=== PATIENT | female | born 1960 | race Caucasian/White ===

== ENCOUNTER 2018-06-19 10:47 | Emergency (ER) | payer OTHER ==
[~2018-06-19 10:47] MED LIST: AZIT-18 PO; ESOM20CA31 PO; LISI-362 PO; PRED-1 PO
[2018-06-19] MEDS ORDERED: LISI20TA29 PO (10:58)
[2018-06-19] MEDS ORDERED: PANT40TA65 PO (10:58)
--- NOTE | 2018-06-19 11:00 | ER Report ---
History and Physical Time Seen By MD: 10:56 Hx. of Stated Complaint: CHEST PAIN ON LEFT SIDE SINCE 0600; STATES THAT THE LEFT SIDE OF HER NECK IS ALSO PAINFUL HPI/ROS CHIEF COMPLAINT: Chest pain HISTORY OF PRESENT ILLNESS: This is a 58-year-old female presents to the emergency department with her for chest pain. Patient states that about 6:00 this morning when she woke up she had some left-sided chest pain and as the morning progressed the pain had radiated into the left chest and into the left side of her neck. Patient took 12/23/2024 milligram aspirin. She also has some mild shortness of breath, blurred vision, nausea no vomiting. No fevers or chills. No rashes. No headaches. No other neuro deficits. Patient states that she thinks this is stress related, this is the last week of work and will be transitioning into a new job. REVIEW OF SYSTEMS: Constitutional: No fever, no chills. Eyes: As above. ENT: No sore throat. Cardiovascular: As above. Respiratory: As above. Gastrointestinal: As above. Genitourinary: No hematuria. Musculoskeletal: As above. Skin: No rashes. Neurological: No headache. Allergies: Coded Allergies: Penicillins (Verified Allergy, Intermediate, RASH, 12/07/15) Sulfa (Sulfonamide Antibiotics) (Verified Allergy, Intermediate, RASH, ) Home Meds Reported Medications Lisinopril (LISINOPRIL) 20 Mg Tablet, 20 MG PO QDAY, TAB 06/19/18 Pantoprazole Sodium (PANTOPRAZOLE SODIUM) 40 Mg Tablet.dr, 40 MG PO QDAY, TAB.SR 06/19/18 Discontinued Reported Medications Esomeprazole Magnesium (NEXIUM) 20 Mg Capsule.dr, 1 CAP PO QDAY, CAP 12/07/15 Lisinopril (LISINOPRIL) 10 Mg Tablet, 10 MG PO QDAY 12/07/15 Discontinued Scripts Prednisone 10 Mg Tab (PREDNISONE 10 MG TAB) 10 Mg Tablet, 10 MG PO QDAY Y for reduction of lung inflammation, #9 2 tabs daily for 3 days 1 tab daily for 3 days Prov:FEDERICO HERNANDEZ DO 12/07/15 Azithromycin 250 Mg Tab (AZITHROMYCIN 250 MG TAB) 250 Mg Tablet, 0 PO QDAY, #6 TAB TAKE 2 TABLETS ON DAY 1 AND 1 TABLET ON DAYS 2-5 Prov:FEDERICO HERNANDEZ DO 12/07/15 Past Medical/Surgical History The patient has a past medical and surgical history of hypertension, pneumonia, GERD, urinary tract infections, wears glasses, history of anxiety, cholecystectomy, tubal ligation. Reviewed Nurses Notes: Yes Hx Smoking: No Constitutional Vital Sign - Last 24 Hours 06/19/18 06/19/18 06/19/18 06/19/18 10:51 10:51 11:04 11:17 Temp 97.7 Pulse 65 64 Resp 17 B/P (MAP) 184/79 184/79 (114) 158/96 (116) Pulse Ox 97 O2 Delivery Room Air 06/19/18 06/19/18 06/19/18 06/19/18 11:47 12:00 12:05 12:30 Pulse 61 54 58 Resp 12 14 12 B/P (MAP) 141/89 (106) 139/81 (100) Pulse Ox 92 95 93 06/19/18 06/19/18 06/19/18 06/19/18 13:00 13:05 13:35 14:00 Pulse 64 66 64 Resp 18 17 14 B/P (MAP) 136/59 (84) 131/88 (102) Pulse Ox 93 96 94 06/19/18 14:30 Pulse 63 Resp 25 B/P (MAP) 143/79 (100) Pulse Ox 93 Physical Exam General Appearance: The patient is alert, has no immediate need for airway protection and no signs of toxicity. Eyes: Pupils equal and round no pallor or injection. EOMs intact, no nystatin. ENT, Mouth: Mucous membranes are moist. Respiratory: There are no retractions, lungs are clear to auscultation. Cardiovascular: Regular rate and rhythm, no murmurs, clicks or rubs. Gastrointestinal: Abdomen is round soft and non tender, no masses, bowel sounds normal. Neurological: Alert and oriented 4. Moving all extremities. Following all commands. No focal neuro deficits. Skin: Warm and dry, no rashes. Musculoskeletal: Neck is supple non tender. Extremities are nontender, nonswollen and have full range of motion. DIFFERENTIAL DIAGNOSIS: After history and physical exam differential diagnosis was considered for chest pain including but not limited to myocardial ischemia, pericarditis pulmonary embolus, chest wall pain, arthritis, Pleural inflammation and pulmonary infectious causes. Medical Decision Making Data Points Result Diagram: 7/31/18 1111 06/19/18 1111 Laboratory Hematology Test 06/19/18 11:11 Red Blood Count 4.87 M/uL (4.17-5.56) Mean Corpuscular Volume 95.8 fL (80.0-96.0) Mean Corpuscular Hemoglobin 33.5 pg (26.0-33.0) Mean Corpuscular Hemoglobin Concent 34.9 g/dL (32.0-36.0) Red Cell Distribution Width 13.3 % (11.5-14.5) Mean Platelet Volume 7.0 fL (7.2-11.1) Neutrophils (%) (Auto) 42.9 % (39.4-72.5) Lymphocytes (%) (Auto) 47.4 % (17.6-49.6) Monocytes (%) (Auto) 7.6 % (4.1-12.4) Eosinophils (%) (Auto) 1.7 % (0.4-6.7) Basophils (%) (Auto) 0.4 % (0.3-1.4) Nucleated RBC Relative Count (auto) 0.2 /100WBC Neutrophils # (Auto) 3.1 K/uL (2.0-7.4) Lymphocytes # (Auto) 3.5 K/uL (1.3-3.6) Monocytes # (Auto) 0.6 K/uL (0.3-1.0) Eosinophils # (Auto) 0.1 K/uL (0.0-0.5) Basophils # (Auto) 0.0 K/uL (0.0-0.1) Nucleated RBC Absolute Count (auto) 0.01 K/uL D-Dimer Quantitative (PE/DVT) 0.47 ug/ml (0-0.50) Sodium Level 139 mmol/L (137-145) Potassium Level 3.9 mmol/L (3.5-5.0) Chloride Level 106 mmol/L (98-107) Carbon Dioxide Level 23 mmol/L (22-31) Blood Urea Nitrogen 9 mg/dl (7-18) Creatinine 0.90 mg/dl (0.52-1.04) Glomerular Filtration Rate Calc > 60.0 Random Glucose 94 mg/dl (75-110) Calcium Level 9.4 mg/dl (8.4-10.2) Total Bilirubin 1.1 mg/dl (0.2-1.3) Aspartate Amino Transf (AST/SGOT) 38 U/L (0-35) Alanine Aminotransferase (ALT/SGPT) 48 U/L (0-56) Alkaline Phosphatase 58 U/L (0-126) Troponin I < 0.012 ng/ml Total Protein 7.5 g/dl (6.3-8.2) Albumin 4.4 g/dl (3.5-5.0) Chemistry Test 06/19/18 11:11 White Blood Count 7.3 k/uL (4.5-11.0) Red Blood Count 4.87 M/uL (4.17-5.56) Hemoglobin 16.3 g/dL (12.0-16.0) Hematocrit 46.7 % (34.0-47.0) Mean Corpuscular Volume 95.8 fL (80.0-96.0) Mean Corpuscular Hemoglobin 33.5 pg (26.0-33.0) Mean Corpuscular Hemoglobin Concent 34.9 g/dL (32.0-36.0) Red Cell Distribution Width 13.3 % (11.5-14.5) Platelet Count 270 K/uL (150-450) Mean Platelet Volume 7.0 fL (7.2-11.1) Neutrophils (%) (Auto) 42.9 % (39.4-72.5) Lymphocytes (%) (Auto) 47.4 % (17.6-49.6) Monocytes (%) (Auto) 7.6 % (4.1-12.4) Eosinophils (%) (Auto) 1.7 % (0.4-6.7) Basophils (%) (Auto) 0.4 % (0.3-1.4) Nucleated RBC Relative Count (auto) 0.2 /100WBC Neutrophils # (Auto) 3.1 K/uL (2.0-7.4) Lymphocytes # (Auto) 3.5 K/uL (1.3-3.6) Monocytes # (Auto) 0.6 K/uL (0.3-1.0) Eosinophils # (Auto) 0.1 K/uL (0.0-0.5) Basophils # (Auto) 0.0 K/uL (0.0-0.1) Nucleated RBC Absolute Count (auto) 0.01 K/uL D-Dimer Quantitative (PE/DVT) 0.47 ug/ml (0-0.50) Glomerular Filtration Rate Calc > 60.0 Calcium Level 9.4 mg/dl (8.4-10.2) Total Bilirubin 1.1 mg/dl (0.2-1.3) Aspartate Amino Transf (AST/SGOT) 38 U/L (0-35) Alanine Aminotransferase (ALT/SGPT) 48 U/L (0-56) Alkaline Phosphatase 58 U/L (0-126) Troponin I < 0.012 ng/ml Total Protein 7.5 g/dl (6.3-8.2) Albumin 4.4 g/dl (3.5-5.0) Coagulation Test 06/19/18 11:11 D-Dimer Quantitative (PE/DVT) 0.47 ug/ml EKG/Imaging EKG Interpretation 12 lead EKG: Time of EKG 1054. Rhythm: Normal sinus rhythm, ventricular rate 62 bpm. Francis: normal QRS: normal ST segments: Downsloping Twave in lead III, no other than reciprocal changes identified. No previous EKG to compare to. Imaging Location: [facility] - [place] Patient: Brenda Whitehead : 1960 Visit/Account:[id number] Date of Sev: 06/19/2018 Exam type: CHEST PA AND LAT History: Chest Pain Comparison: None. Findings: The lungs are free of acute effusions, infiltrates or edema. There is no evidence of a pneumothorax or pneumomediastinum. Cardiac silhouette is normal in size. There are multiple moderate spondylotic changes of the thoracic spine. Surgical clips are present right upper quadrant of abdomen. IMPRESSION: 1. No acute cardiac pulmonary process is seen Report Dictated By: Quynh Singh MD at 06/19/2018 11:50 AM Report E-Signed By: Quynh Singh MD at 06/19/2018 11:50 AM WSN:[email or web address] Location: [facility] - [place] Patient: Brenda Whitehead : 1960 Visit/Account:[id number] Date of Sevice: 06/19/2018 Exam type: SHOULDER MIN 2 VIEWS LEFT History: chest and shoulder pain Comparison: None. Findings: Two views the left shoulder demonstrate no evidence of acute fracture or dislocation. There is a subtle cortical irregularity seen along the medial aspect of the proximal metaphysis of the left humerus of uncertain etiology. This could represent chronic finding however given the clinical history of left shoulder pain this could represent a healing posttraumatic defect or a more remote consideration of a neoplastic process. IMPRESSION: 1. Subtle cortical irregularity seen along the medial aspect of the proximal metaphysis of the left humerus which could represent a chronic finding. Given the clinical history of pain however healing posttraumatic defect or the remote consideration of a neoplastic process not entirely ruled out. Report Dictated By: Quynh Singh MD at 06/19/2018 11:46 AM Report E-Signed By: Quynh Singh MD at 06/19/2018 11:50 AM WSN:[email or web address] CT left shoulder Indication: Left shoulder pain Comparison: None available. Technique: Axial CT images were obtained through the left shoulder. Reformatted coronal and sagittal images were reviewed. One of the following dose optimization techniques was utilized in the performance of this exam: automated exposure control; adjustment of the mA and/ or kV according to the patient's size; or use of an iterative reconstruction technique. Specific details can be referenced in the facility's radiology CT exam operational policy. Findings: No acute osseous abnormality of the bones of the shoulder. There is no neoplastic abnormality of the medial aspect of the proximal humerus as suggested on prior x-ray. There are mild osteoarthritic changes of the AC joint. The rotator cuff appears grossly intact with no severe fatty atrophy identified on these images. Partial tearing of the rotator cuff is better evaluated with intra-articular contrast. Limited views left upper lung field are unremarkable. IMPRESSION: 1. No acute osseous abnormality left shoulder Report Dictated By: Simone Msaon MD at 06/19/2018 1:31 PM Report E-Signed By: Simone Mason MD at 06/19/2018 2:17 PM WSN:[email or web address] ED Course/Re-evaluation Clinical Indication for ER IV: Hydration, IV Access ED Course The patient was admitted to room. A history physical obtained. Differential diagnoses were considered. An IV was started. A CBC, CMP, d-dimer and troponin were obtained. A 1 liter NS bolus was given, 4mg IV Zofran. Lab studies unremarkable, negative d-dimer and negative troponin.Negative two-view chest x- ray, left shoulder negative for any acute abnormalities however there was a concern for possible neoplastic process. I discussed this with the patient, we did a CT of the left shoulder which was negative for any concerning findings. EKG showing normal sinus rhythm with a downsloping T-wave in lead III, but no other reciprocal changes noted. No repeat troponin obtained as the pain began at 0600. The patient states she is feeling better. I did review the results with the patient, I did tell her that I do not have a clear explanation to what is causing the left chest and shoulder pain, but could be related to arthritis in the shoulder. The patient was relieved with the results and discharged home. She was encouraged to return to the ED for any other concerns or worsening symptoms. Decision to Disposition Date: Jun 19, 2018 Decision to Disposition Time: 14:24 Depart Departure Latest Vital Signs Vital Signs Date Time Temp Pulse Resp B/P (MAP) Pulse Ox O2 Delivery O2 Flow Rate FiO2 06/19/18 14:30 63 25 143/79 (100) 93 06/19/18 10:51 97.7 Room Air Impression: Primary Impression: Chest pain of unknown etiology Condition: Improved Disposition: HOME OR SELF-CARE Patient Instructions: Chest Pain (ED) Additional Instructions: No indication of cardiac involvement causing the chest pain today. Drink plenty of water. Get plenty of rest. Follow-up with your primary care provider within one week for reevaluation. Try to minimize your stress. Return to the emergency department for any other concerns or worsening symptoms. MYLES STANLEY AGRICULTURAL ENGINEER-BC Jun 19, 2018 11:00
[2018-06-19] MEDS ORDERED: NS(*) 0.9% 1000 ML BAG 1,000 ML IV ONE (11:12)
[2018-06-19] MEDS ORDERED: ONDANSETRON 4 MG/2 ML VIAL IVP ONE (11:15)
[2018-06-19 11:24] LABS: PLATELET COUNT, AUTOMATED 270 K/uL (150-450)
--- NOTE | 2018-06-19 11:54 | RADIOLOGY IMAGING REPORT ---
[place] [facility] [place] Brenda Whitehead : 1960 MR: [id number] V: [id number] EXAM DATE: ORDERING PHYSICIAN: MYLES STANLEY TECHNOLOGIST: Location: [facility] - [place] Patient: Brenda Whitehead : 1960 Visit/Account:[id number] Date of Sevice: 06/19/2018 Exam type: CHEST PA AND LAT History: Chest Pain Comparison: None. Findings: The lungs are free of acute effusions, infiltrates or edema. There is no evidence of a pneumothorax or pneumomediastinum. Cardiac silhouette is normal in size. There are multiple moderate spondylotic changes of the thoracic spine. Surgical clips are present right upper quadrant of abdomen. IMPRESSION: 1. No acute cardiac pulmonary process is seen Report Dictated By: Quynh Singh MD at 06/19/2018 11:50 AM Report E-Signed By: Quynh Singh MD at 06/19/2018 11:50 AM WSN:MANI
--- NOTE | 2018-06-19 11:55 | RADIOLOGY IMAGING REPORT ---
FACILITY: [facility] - [place] PATIENT NAME: Brenda Whitehead : 1960 MR: [id number] V: [id number] EXAM DATE: ORDERING PHYSICIAN: MYLES STANLEY TECHNOLOGIST: Location: [facility] Patient: Brenda Whitehead : 1960 Visit/Account:[id number] Date of Sevice: 06/19/2018 Exam type: SHOULDER MIN 2 VIEWS LEFT History: chest and shoulder pain Comparison: None. Findings: Two views the left shoulder demonstrate no evidence of acute fracture or dislocation. There is a subtle cortical irregularity seen along the medial aspect of the proximal metaphysis of th e left humerus of uncertain etiology. This could represent chronic finding however given the clinica l history of left shoulder pain this could represent a healing posttraumatic defect or a more remote consideration of a neoplastic process. IMPRESSION: 1. Subtle cortical irregularity seen along the medial aspect of the proximal metaphysis of the left humerus which could represent a chronic finding. Given the clinical history of pain however healing posttraumatic defect or the remote consideration of a neoplastic process not entirely ruled out. Report Dictated By: Quynh Singh MD at 06/19/2018 11:46 AM Report E-Signed By: Quynh Singh MD at 06/19/2018 11:50 AM WSN:MANI
--- NOTE | 2018-06-19 12:17 | EKG ---
[place] [facility] [place] NAME: DARRYN AQUINO : [id number] MR: [id number] V: [id number] EXAM DATE: ORDERING PHYSICIAN: MYLES STANLEY TECHNOLOGIST: KASANDRA Burgess Reason : CARDIAC Blood Pressure : / mmHG Vent. Rate : 062 BPM Atrial Rate : 062 BPM P-R Int : 166 ms QRS Dur : 082 ms QT Int : 402 ms P-R-T Axes : 029 027 016 degrees QTc Int : 408 ms Normal sinus rhythm Normal ECG No previous ECGs available Confirmed by Reynold Farnsworth ([id number]) on 06/19/2018 1:08:21 PM Referred By: ODESSA Confirmed By:Reynold Caceres
--- NOTE | 2018-06-19 14:22 | RADIOLOGY IMAGING REPORT ---
FACILITY: [facility] - [place] PATIENT NAME: Brenda Whitehead : 1960 MR: [id number] V: [id number] EXAM DATE: ORDERING PHYSICIAN: MYLES STANLEY TECHNOLOGIST: Location: [facility] - [place] Patient: Brenda Whitehead : 1960 Visit/Account:[id number] Date of Sevice: 06/19/2018 CT left shoulder Indication: Left shoulder pain Comparison: None available. Technique: Axial CT images were obtained through the left shoulder. Reformatted coronal and sagittal images were reviewed. One of the following dose optimization techniques was utilized in the performance of this exam: autom ated exposure control; adjustment of the mA and/or kV according to the patient's size; or use of an i terative reconstruction technique. Specific details can be referenced in the facility's radiology CT exam operational policy. Findings: No acute osseous abnormality of the bones of the shoulder. There is no neoplastic abnormality of the medial aspect of the proximal humerus as suggested on prior x-ray. There are mild osteoarthritic changes of the AC joint. The rotator cuff appears grossly intact with no severe fatty atrophy identified on these images. Part ial tearing of the rotator cuff is better evaluated with intra-articular contrast. Limited views left upper lung field are unremarkable. IMPRESSION: 1. No acute osseous abnormality left shoulder Report Dictated By: Simone Mason MD at 06/19/2018 1:31 PM Report E-Signed By: Simone Mason MD at 06/19/2018 2:17 PM WSN:[email or web address]
[2018-06-19 14:30] VITALS: BP 143/79
== END 2018-06-19 14:35 | disposition home or self-care (01) ==
LOC: ER 10:59
DX: R07.89 Other chest pain (principal); R06.02 Shortness of breath; I10 Essential (primary) hypertension; Z79.899 Other long term (current) drug therapy
CPT/HCPCS: 71046; 73030; 73200; 84484; 85025; 85379; 93005; 96374; 99284; J2405; J7030; 82040; 82247; 82310; 82374; 82435; 82565; 82947; 84075; 84132; 84155; 84295; 84450; 84460; 84520